=== PATIENT | male | born 1945 ===

== ENCOUNTER 2024-08-11 10:00 | Outpatient (RCR) | payer MEDICARE | END 2024-08-17 | LOC: RESP 10:00 | PROVIDERS: ATTEND Internal Medicine | DX: J44.9 Chronic obstructive pulmonary disease, unspecified (principal) | CPT/HCPCS: 94626 ×2; 94799; G0238 ×2 ==

== ENCOUNTER 2024-09-15 11:00 | Outpatient (RCR) | payer MEDICARE | END 2024-09-16 | LOC: RESP 11:00 | PROVIDERS: ATTEND Internal Medicine | DX: J44.9 Chronic obstructive pulmonary disease, unspecified (principal) | CPT/HCPCS: 94626 ×3; G0238 ×3 ==

== ENCOUNTER 2024-11-10 11:00 | Outpatient (RCR) | payer MEDICARE | END 2024-11-16 | LOC: RESP 11:00 | PROVIDERS: ATTEND Internal Medicine | DX: J44.9 Chronic obstructive pulmonary disease, unspecified (principal) | CPT/HCPCS: 94626 ×4; G0238 ×4 ==

== ENCOUNTER 2024-12-15 11:00 | Outpatient (RCR) | payer MEDICARE | END 2024-12-17 | LOC: RESP 11:00 | PROVIDERS: ATTEND Internal Medicine | DX: J44.9 Chronic obstructive pulmonary disease, unspecified (principal) | CPT/HCPCS: 94626 ×5; G0238 ×5 ==

== ENCOUNTER 2025-01-12 11:00 | Outpatient (RCR) | payer MEDICARE | END 2025-01-17 | LOC: RESP 11:00 | PROVIDERS: ATTEND Internal Medicine | DX: J44.9 Chronic obstructive pulmonary disease, unspecified (principal) | CPT/HCPCS: 94626 ×3; G0238 ×3 ==

== ENCOUNTER → 2025-02-16 | Outpatient (RCR) | payer MEDICARE | LOC: RESP 01-19 17:13 | PROVIDERS: ATTEND Internal Medicine | DX: J44.9 Chronic obstructive pulmonary disease, unspecified (principal) | CPT/HCPCS: 94626 ×3; G0238 ×3 ==